=== PATIENT | female | born 1990 | race Caucasian/White ===

== ENCOUNTER 2017-04-01 06:49 | Inpatient (IN) | payer MEDICAID ==
[~2017-04-01] VITALS: Ht 157.5 cm; Wt 96.0 kg
[~2017-04-01 06:49] MED LIST: IBUP-1 PO; IBUP800T PO; OXYC-302 PO; PREN1TAB52 PO; SODI30SP NAS
[2017-04-01] MEDS: LACTATED RINGERS 1,000 ML IV SCH ×4 (07:12→23:38)
[2017-04-01] MEDS ORDERED: OXYTOCIN 30U/ 0.9% NaCL 500ML 500 ML ONE (07:16)
[2017-04-01] MEDS ORDERED: LIDOCAINE 1%, 20ML ONE (07:16)
[2017-04-01] MEDS ORDERED: NEWBORN KIT ONE (07:16)
[2017-04-01] MEDS ORDERED: MISOPROSTOL 200 MCG TABLET ONE (07:16)
[2017-04-01] MEDS ORDERED: OXYTOCIN 30U/ 0.9% NaCL 500ML 500 ML IV ONE (07:24)
[2017-04-01] MEDS ORDERED: OXYTOCIN 30U/ 0.9% NaCL 500ML 500 ML IV PRN (07:24)
[2017-04-01] MEDS ORDERED: SODIUM CITRATE/CITRIC ACID 30 ML UDC PO PRN (07:30)
[2017-04-01] MEDS ORDERED: ALUMINUM/MAG/SIMETHICONE 30 ML UDC PO PRN (07:30)
[2017-04-01] MEDS ORDERED: CALCIUM CARBONATE 500 MG TAB.CHEW PO PRN (07:30)
[2017-04-01] MEDS ORDERED: ONDANSETRON 2MG/ML, 2ML IVPush PRN (07:30)
[2017-04-01] MEDS: PLEASE ENTER HEIGHT AND WEIGHT MC SCH ×2 (08:00→16:00)
[2017-04-01] MEDS ORDERED: FENTANYL PF 100 MCG/2ML ONE ×2 (13:40→15:52)
[2017-04-01] MEDS: FENTANYL PF 100 MCG/2ML IVPush PRN ×2 (13:42→15:54)
[2017-04-01] MEDS: D5%-LACTATED RINGERS 1,000 ML IV SCH ×3 (15:24→23:24)
[2017-04-01] MEDS ORDERED: FENTANYL/BUPIV./NS/PF 250 ML EPIDCONT ONE (17:52)
[2017-04-01] MEDS: FENTANYL/BUPIV./NS/PF 250 ML EPIDCONT SCH (19:28)
[2017-04-01] MEDS ORDERED: NALOXONE 0.4 MG/ML, 1ML IVPush PRN (19:30)
[2017-04-01] MEDS ORDERED: EPHEDRINE 50 MG/ML, 1ML IVPush PRN (19:30)
[2017-04-01] MEDS ORDERED: LACTATED RINGERS 1,000 ML IVBOLUS PRN (19:30)
[2017-04-01] MEDS ORDERED: TERBUTALINE 1 MG/ML, 1ML ONE (20:05)
[2017-04-01] MEDS ORDERED: ONDANSETRON 2MG/ML, 2ML ONE (23:14)
[2017-04-02] MEDS ORDERED: CALCIUM CARBONATE 500 MG TAB.CHEW ONE (00:37)
[2017-04-02] MEDS: LACTATED RINGERS 1,000 ML IV SCH ×6 (03:28→23:24)
[2017-04-02] MEDS: OXYTOCIN 30U/ 0.9% NaCL 500ML 500 ML IV SCH ×16 (05:03→23:41)
[2017-04-02] MEDS ORDERED: OXYTOCIN 30U/ 0.9% NaCL 500ML 500 ML ONE (05:15)
[2017-04-02] MEDS ORDERED: IBUPROFEN 800 MG TABLET ONE ×2 (05:15→05:16)
[2017-04-02] MEDS ORDERED: OXYcodone/APAP 5/325MG TABLET ONE (05:15)
[2017-04-02] MEDS ORDERED: OXYTOCIN 10 UNITS/ML, 1ML IM PRN (05:30)
[2017-04-02] MEDS ORDERED: METHYLERGONOVINE 0.2 MG/ML IM PRN (05:30)
[2017-04-02] MEDS ORDERED: OXYcodone/APAP 5/325MG TABLET PO PRN ×2 (05:30)
[2017-04-02] MEDS ORDERED: ACETAMINOPHEN 325 MG TABLET PO PRN ×2 (05:30)
[2017-04-02] MEDS ORDERED: DOCUSATE 100 MG CAPSULE PO PRN (05:30)
[2017-04-02] MEDS ORDERED: DIPH,PERTUSS(ACELL),TET VAC/PF NC IM-VACC PRN (05:30)
[2017-04-02] MEDS ORDERED: ONDANSETRON 2MG/ML, 2ML IV PRN (05:30)
[2017-04-02 07:20] VITALS: BP 121/67
[2017-04-02] MEDS: D5%-LACTATED RINGERS 1,000 ML IV SCH ×3 (07:24→23:24)
[2017-04-02] MEDS: PLEASE ENTER HEIGHT AND WEIGHT MC SCH ×3 (08:00→16:00)
[2017-04-02] MEDS: PRENATAL VIT/IRON/FA 1 EACH TABLET PO SCH (09:00)
[2017-04-02] MEDS: IBUPROFEN 800 MG TABLET PO PRN (12:32)
[2017-04-02 13:30] VITALS: BP 110/58
[2017-04-02] MEDS: FENTANYL/BUPIV./NS/PF 250 ML EPIDCONT SCH (16:18)
[2017-04-02 20:15] VITALS: BP 131/78
[2017-04-03] MEDS: PLEASE ENTER HEIGHT AND WEIGHT MC SCH
[2017-04-03 00:40] VITALS: BP 126/74
[2017-04-03] MEDS: OXYTOCIN 30U/ 0.9% NaCL 500ML 500 ML IV SCH ×3 (01:03→02:33)
[2017-04-03] MEDS: IBUPROFEN 800 MG TABLET PO PRN (02:42)
[2017-04-03 04:15] VITALS: BP 118/44
[2017-04-03 08:30] VITALS: BP 127/74
[2017-04-03] MEDS: PRENATAL VIT/IRON/FA 1 EACH TABLET PO SCH (09:22)
== END 2017-04-03 11:27 | disposition home or self-care (01) | DRG 775 ==
LOC: LDIP 06:49 → 2NW 04-02 07:15
PROVIDERS: ADMIT Obstetrics & Gynecology; ATTEND Obstetrics & Gynecology
PROC: 10E0XZZ Delivery of Products of Conception, External Approach (ICD-10-PCS; principal; 2017-04-02)
PROC: 10907ZC Drainage of Amniotic Fluid, Therapeutic from Products of Conception, Via Natural or Artificial Opening (ICD-10-PCS; 2017-04-02)
PROC: 3E033VJ Introduction of Other Hormone into Peripheral Vein, Percutaneous Approach (ICD-10-PCS; 2017-04-02)
PROC: 00HU33Z Insertion of Infusion Device into Spinal Canal, Percutaneous Approach (ICD-10-PCS; 2017-04-02)
PROC: 3E0R3CZ (ICD-10-PCS; 2017-04-02)
DX: O80 Encounter for full-term uncomplicated delivery (principal); Z88.5 Allergy status to narcotic agent; Z88.0 Allergy status to penicillin; Z3A.39 39 weeks gestation of pregnancy; Z37.0 Single live birth
CPT/HCPCS: 36415; 85025; 86850; 86900; J3010; J3490; J2590; J7120; J7121